=== PATIENT | male | born 1940 | race Caucasian/White ===

== ENCOUNTER 2023-06-15 10:28 | Emergency (ER) | payer OTHER ==
--- OUTSIDE RECORDS SUMMARY | 2023-06-15 10:31 | XMS REPORT | Continuity of Care Document ---
Author Name Unknown Address [address] [facility] [address] [place] [address] [facility] thconnect Address [address] [facility]. [address] [place] [address] Care Team Providers Care Cattle Sprayer Name Role Phone Juan Rowe Attending Clinician UnavailBree Ambrosio Attending Clinician Unavailable Radiology Attending Clinician Unavailable RADIOLOGY Attending Clinician Unavailable Muna David Cardiology Admitting Clinician Unavailable Bree Hubbard Admitting Clinician Unavailable Payers Payer Name Policy Type Policy Number Effective Date Expirati on Date Source Allergies, Adverse Reactions, Alerts Allergy Name Allergy Type Status Severity Reaction(s) Onset Date Inactive Date Treating Clinician Comments Source No Known Allergie s DA Active U 2018-03 00:00: 00 [facility] No Known Allergie s DA Active U 2018-03 00:00: 00 [facility] NO KNOWN ALLERGIE S Drug Class Active [facility] Social History Social Habit Start Date Stop Date Quantity Comments Source Sex Assigned At [facility] Exposure to SARS-CoV-2 (event) Not sure General acute hospital Smoking Status Start Date Stop Date Source Unknown if ever smoked Unive [facility] Medications Ordered Medication Name Filled Medication Name Start Date Stop Date Current Medication? Ordering Clinician Indication Dosage Frequency Signature (SIG) Comments Components Source iohexol (OMNIPAQUE 350 BULK-100 mL) injection 100 mL 2019-03 20:00: 00 01-08 19:40 :00 No 100mL 100 mL, Intravenou s, ONCE, 1 dose, Leidy 01/09/20 at 1400, Routine [facility] Procedures Procedure Date / Time Performed Performing Clinician Source NOTICE OF BILLING PRACTICES FOR MEDICARE PATIENTS 2020-01-09 21:56:00 Doctor Unassigned, [place] [facility] CT THORAX W WO CONTRAST 2020-01-09 19:46:51 Requisitio n, Paper [facility] PATIENT FINANCIAL POLICY 2020-01-09 18:52:52 Doctor Unassigned, [place] [facility] NO SHOW OR MISSED APPOINTMENT POLICY ACKNOWLEDGEMENT 2020-01-09 18:52:34 Doctor Unassigned, [place] [facility] CONSENT/REFUSAL FOR DIAGNOSIS AND TREATMENT 2020-01-09 18:52:19 Doctor Unassigned, [place] [facility] ASSIGNMENT OF BENEFITS 2020-01-09 18:52:06 Docto r Unassigned, [place] [facility] Encounters Start Date/Time End Date/Time Encounter Type Admission Type Attending Clinicians Care Facility Care Department Encounter ID Source 2021-12-27 04:55:00 2021-12-27 04:55:00 Outpatient AMBER Soledad Juan [facility] OUTD [id number] 75 [facility] 2021-02-20 04:38:00 2021-02-21 12:23:00 Inpatient Bree Wolff [facility] TELE [id number] 36 [facility] 2020-01-09 12:52:25 2020-01-09 23:59:00 Hospital Encounter Radiology [facility] [id number] [facility] 2020-01-09 00:00:00 2020-01-09 00:00:00 Outpatient R RADIOLOGY [facility] [id number] [facility] Results Test Description Test Time Test Comments Results Result Co mments Source BASIC METABOLIC [id number] 08:08:00* Test Item Value Reference Range Interpretation Comme nts SODIUM (test code = NA) 138 mEq/L 134-147 N POTASSIUM (test code = K) 3.6 mEq/L 3.4-5.0 N CHLORIDE (test code = CL) 104 mEq/L 100-108 N CARBON DIOXIDE (test code = CO2) 23 mEq/l 21-33 N ANION GAP (test code = GAP) 15 0-20 N GLUCOSE (test code = GLU) 104 mg/dL 70-110 N BLOOD UREA NITROGEN (test code = BUN) 13 mg/dL 7-18 N GLOMERULAR FILTRATION RATE (test code = GFR) 53.3 70-80 L Units of measure = ml/min/1.73 m2 CREATININE (test code = CREAT) 1.3 mg/dL 0.6-1.3 N CALCIUM (test code = CA) 10.0 mg/dL 8.0-10.5 N PROTHROMBIN [id number] 08:00:00* Test Item Value Reference Range Interpretation Comme nts PROTHROMBIN TIME PATIENT (test code = PTP) 14.7 SECONDS 9.3-12.9 H INTERNATIONAL NORMAL RATIO (test code = INR) 1.3 0.8-1.2 H TARGET INR BY INDICATION Indication INR1. Prophylaxis of venous thrombosis 2.0 - 3.0 (orthopedic surgery), Prophylaxis of venous thrombosis (other than high-risk surgery), Treatment of Deep Vein Thrombosis/Pulmonary Embolism, Prevention of systemic embolism - Tissue heart valves, Acute Myocardial Infarction (to prevent systemic embolism), Valvular heart disease, Atrial Fibrillation, Bileaflet mechanical valve in aortic position.2. Mechanical prosthetic valves (high risk), 2.5 - 3.5 Presence of Lupus Anticoagulant or Antiphospholipid Antibodies, Prevention of systemic embolism - Acute Myocardial Infarction (to prevent recurrent infarct). BASIC METABOLIC [id number] 17:09:00* Test Item Value Reference Range Interpretation Comme nts SODIUM (test code = NA) 139 mEq/L 134-147 N POTASSIUM (test code = K) 4.4 mEq/L 3.4-5.0 N CHLORIDE (test code = CL) 102 mEq/L 100-108 N CARBON DIOXIDE (test code = CO2) 26 mEq/l 21-33 N ANION GAP (test code = GAP) 16 0-20 N GLUCOSE (test code = GLU) 117 mg/dL 70-110 H BLOOD UREA NITROGEN (test code = BUN) 13 mg/dL 7-18 N GLOMERULAR FILTRATION RATE (test code = GFR) 53.3 70-80 L Units of measure = ml/min/1.73 m2 CREATININE (test code = CREAT) 1.3 mg/dL 0.6-1.3 N CALCIUM (test code = CA) 9.9 mg/dL 8.0-10.5 N PROTHROMBIN [id number] 17:04:00* Test Item Value Reference Range Interpretation Comme nts PROTHROMBIN TIME PATIENT (test code = PTP) 19.5 SECONDS 9.3-12.9 H INTERNATIONAL NORMAL RATIO (test code = INR) 1.8 0.8-1.2 H TARGET INR BY INDICATION Indication INR1. Prophylaxis of venous thrombosis 2.0 - 3.0 (orthopedic surgery), Prophylaxis of venous thrombosis (other than high-risk surgery), Treatment of Deep Vein Thrombosis/Pulmonary Embolism, Prevention of systemic embolism - Tissue heart valves, Acute Myocardial Infarction (to prevent systemic embolism), Valvular heart disease, Atrial Fibrillation, Bileaflet mechanical valve in aortic position.2. Mechanical prosthetic valves (high risk), 2.5 - 3.5 Presence of Lupus Anticoagulant or Antiphospholipid Antibodies, Prevention of systemic embolism - Acute Myocardial Infarction (to prevent recurrent infarct). CBC W/AUTO [id number] 16:52:00* Test Item Value Reference Range Interpretation Comme nts WHITE BLOOD CELL (test code = WBC) 6.1 x10 3/uL 4.5-11.0 N RED BLOOD CELL (test code = RBC) 4.17 x10 6/uL 4.00-5.60 N HEMOGLOBIN (test code = HGB) 13.1 g/dL 12.5-16.9 N HEMATOCRIT (test code = HCT) 39.5 % 37.5-50.7 N MEAN CELL VOLUME (test code = MCV) 94.7 fL 81.0-99.0 N MEAN CELL HGB (test code = MCH) 31.4 pg 27.0-33.0 N MEAN CELL HGB CONCETRATION (test code = MCHC) 33.2 g/dL 33.0-37.0 N RED CELL DISTRIBUTION WIDTH CV (test code = RDW) 13.8 % 11.5-14.5 N RED CELL DISTRIBUTION WIDTH SD (test code = RDW-SD) 47.8 fL 37.0-54.0 N PLATELET COUNT (test code = PLT) 204 x10 3/uL 150-400 N MEAN PLATELET VOLUME (test c ode = MPV) 9.9 fL 7.0-9.0 H NEUTROPHIL % (test code = NT%) 77.8 % 56.0-77.0 H IMMATURE GRANULOCYTE % (test code = IG%) 0.7 % 0.0-2.0 N LYMPHOCYTE % (test code = LY%) 9.7 % 14.0-32.0 L MONOCYTE % (test code = MO%) 9.2 % 4.8-9.0 H EOSINOPHIL % (test code = EO%) 2.1 % 0.3-3.7 N BASOPHIL % (test code = BA%) 0.5 % 0.0-2.0 N NUCLEATED RBC % (test code = NRBC%) 0.0 % 0-0 N NEUTROPHIL # (test code = NT#) 4.74 x10 3/uL 2.0-7.6 N IMMATURE GRANULOCYTE # (test code = IG#) 0.04 x10 3/uL 0.00-0.03 H LYMPHOCYTE # (test code = LY#) 0.59 x10 3/uL 1.0-3.8 L MONOCYTE # (test code = MO#) 0.56 x10 3/uL 0.1-0.8 N EOSINOPHIL # (test code = EO#) 0.13 x10 3/uL 0.0-0.2 N BASOPHIL # (test code = BA#) 0.03 x10 3/uL 0.0-0.2 N NUCLEATED RBC # (test code = NRBC#) 0.00 x10 3/uL 0.0-0.1 N MANUAL DIFF REQUIRED (test c ode = MDIFF) NO - XR CHEST 2 [id number] 00:00:00 [facility] VA[facility]Z [facility] : 1940 Sex: M FAX: Muna Baca MD [phone] [place]: St: PRE FAX: Juan Galindo MD [phone] ------ Name: VAQZUEZ PADRON [facility] : 1940 Age/S: 81/M [address] [place] [address] Unit #: [id number] Loc: [place] [address] Phys: Juan Rowe MD Acct: [id number] Dis Date: Status: PRE [facility] PHONE #: [phone] Exam Date: 12/23/2021 1646 FAX #: [phone] Reason: PREOP EXAMS: CPT CODE: [id number] XR CHEST 2 V [id number] PROCEDURE INFORMATION: Exam: XR Chest Exam date and time: 12/23/2021 4:27 PM Age: 81 years old Clinical indication: Other: Preop TECHNIQUE: Imaging protocol: Radiologic exam of the chest. Views: 2 views. PA and Lateral COMPARISON: No relevant prior studies available. FINDINGS: Lungs: There is mild scarring in the left upper lobe. Scarring versus atelectasis in the right upper lobe is noted. No acute consolidation or interstitial edema is identified. There is mild scarring in the lungbases. Pleural spaces: No pleural effusion. No pneumothorax. Heart/Mediastinum: The heart size is normal. Bones/joints: Degenerative changes in midthoracic spine are present. IMPRESSION: No active disease identified. at 1738 Reported and signed by: Rashaad Kay M.D. CC: Muna David MD; Juan Rowe MD Technologist: RT Neda(Jenn) Trnsaint joseph london Date/Time/By: 12/23/2021 (2460) : By: [email or web address] Orig Print D/T: S: 12/23/2021 (3324) PAGE 1 Signed ReportBASIC METABOLIC PANEL 2021-02-21 07:18:00* Test Item Value Reference Range Interpretation Comme nts SODIUM (test code = NA) 135 MMOL/L 137-145 L POTASSIUM (test code = K) 4.3 MMOL/L 3.5-5.1 N CHLORIDE (test code = CL) 105 MMOL/L 98-107 N CARBON DIOXIDE (test code = CO2) 25 MMOL/L 22-30 N GLUCOSE (test code = GLU) 103 MG/DL 74-106 N BLOOD UREA NITROGEN (test code = BUN) 14 MG/DL 9-20 N GLOMERULAR FILTRATION RATE (test code = GFR) > 60 Reporting units: ml/min/1.73 m2 (Modified MDRD Formula)Reference Range: > or = 60 ml/min/1.73 m2 CREATININE (test code = CREAT) 0.90 MG/DL 0.66-1.25 N CALCIUM (test code = CA) 9.3 MG/DL 8.4-10.2 N CBC W/AUTO [id number] 07:06:00* Test Item Value Reference Range Interpretation Comme nts WHITE BLOOD CELL (test code = WBC) 7.4 K/MM3 3.8-9.8 N RED BLOOD CELL (test code = RBC) 4.30 M/MM3 3.95-5.67 N HEMOGLOBIN (test code = HGB) 13.9 G/DL 12.4-16.7 N HEMATOCRIT (test code = HCT) 41.8 % 35.9-49.5 N MEAN CELL VOLUME (test code = MCV) 97 fL 81.7-96.1 H MEAN CELL HGB (test code = MCH) 32.3 pg 27.6-33.2 N MEAN CELL HGB CONCETRATION (test code = MCHC) 33.3 % 32.9-35.5 N RED CELL DISTRIBUTION WIDTH (test code = RDW) 13.1 % 12.1-15.2 N PLATELET COUNT (test code = PLT) 150 K/MM3 129-368 N MEAN PLATELET VOLUME (test c ode = MPV) 9.8 fl 7.4-10.4 N NEUTROPHIL % (test code = NT%) 71.6 % 43-75 N IMMATURE GRANULOCYTE % (test code = IG%) 0.4 % 0.0-2.0 N LYMPHOCYTE % (test code = LY%) 13.6 % 14-44 L MONOCYTE % (test code = MO%) 10.6 % 4-13 N EOSINOPHIL % (test code = EO%) 3.3 % 0-6 N BASOPHIL % (test code = BA%) 0.5 % 0-2 N NUCLEATED RBC % (test code = NRBC%) 0.0 % 0-1.0 N NEUTROPHIL # (test code = NT#) 5.26 K/mm3 2.0-7.6 N IMMATURE GRANULOCYTE # (test code = IG#) 0.03 x10 3/uL 0-0.03 N LYMPHOCYTE # (test code = LY#) 1.00 K/mm3 1.0-3.8 N MONOCYTE # (test code = MO#) 0.78 K/mm3 0.1-0.8 N EOSINOPHIL # (test code = EO#) 0.24 K/mm3 0.0-0.2 H BASOPHIL # (test code = BA#) 0.04 K/mm3 0.0-0.2 N NUCLEATED RBC # (test code = NRBC#) 0.00 K/mm3 0.0-0.1 N [id number] 08:22:00* Test Item Value Reference Range Interpretation Comme nts ACT-ISTAT (test code = ACTI) 321 SEC 74-137 H [id number] 05:57:00* Test Item Value Reference Range Interpretation Comme nts MAGNESIUM (test code = MAG) 1.9 MG/DL 1.6-2.3 N BASIC METABOLIC [id number] 05:57:00* Test Item Value Reference Range Interpretation Comme nts SODIUM (test code = NA) 140 MMOL/L 137-145 N POTASSIUM (test code = K) 4.2 MMOL/L 3.5-5.1 N CHLORIDE (test code = CL) 104 MMOL/L 98-107 N CARBON DIOXIDE (test code = CO2) 28 MMOL/L 22-30 N GLUCOSE (test code = GLU) 113 MG/DL 74-106 H BLOOD UREA NITROGEN (test code = BUN) 15 MG/DL 9-20 N GLOMERULAR FILTRATION RATE (test code = GFR) > 60 Reporting units: ml/min/1.73 m2 (Modified MDRD Formula)Reference Range: > or = 60 ml/min/1.73 m2 CREATININE (test code = CREAT) 1.00 MG/DL 0.66-1.25 N CALCIUM (test code = CA) 9.9 MG/DL 8.4-10.2 N LIPID PROFILE (CORONARY RISK)2021-02-20 05:57:00* Test Item Value Reference Range Interpretation Comme [facility] TRIGLYCERIDES (test code = TRIG) 69 MG/DL 150-199 L TRIGLYCERIDES REFERENCE RANGE:Normal: <150 mg/dLBorderline High: 150-199 mg/dLHigh: 200-499 mg/dLVery High: >=500 mg/dL CHOLESTEROL (test code = CHOL) 191 MG/DL <200 HDL CHOLESTEROL (test code = HDL) 65 MG/DL 40-59 H LIPOPROTEIN LDL (test code = LDL) 95 MG/DL 0-99 N OPTIMAL......... <100 mg/dLNEAR OPTIMAL/ABOVE OPTIMAL.........100-12 9 mg/dL BORDERLINE HIGH.........130-159 mg/dL HIGH.........160-189 mg/dL VERY HIGH.........>/= 190 mg/dL PROTHROMBIN [id number] 05:44:00* Test Item Value Reference Range Interpretation Comme [facility] PROTHROMBIN TIME PATIENT (test code = PTP) 12.0 SECONDS 9.5-12.7 N INTERNATIONAL NORMAL RATIO (test code = INR) 1.1 0.86-1.14 N The INR is to be used only for monitoring oral anticoagulanttherap y. INDICATION INR VALUE -------1. Prophylaxis, deep venous thrombosis, including high risk surgery. 2.0 - 3.0 2. Prophylaxis, deep venous thrombosis, hip surgery, treatment for deep venous thrombosis or pulmonary prevention of systemic embolism in patients with valvular heart disease, atrial fibrillation, tissue heart valve, or acute myocardial infarction. 2.0 - 3.0 3. Mechanical prosthesis heart valves, recurrent systemic embolism. 3.0 - 4.5 PTT [id number] 05:44:00* Test Item Value Reference Range Interpretation Comme nts PTT ACTIVATED (test code = APTT) 34.6 SECONDS 25.1-36.5 N CBC W/AUTO [id number] 05:33:00* Test Item Value Reference Range Interpretation Comme nts WHITE BLOOD CELL (test code = WBC) 7.5 K/MM3 3.8-9.8 N RED BLOOD CELL (test code = RBC) 4.56 M/MM3 3.95-5.67 N HEMOGLOBIN (test code = HGB) 14.4 G/DL 12.4-16.7 N HEMATOCRIT (test code = HCT) 44.3 % 35.9-49.5 N MEAN CELL VOLUME (test code = MCV) 97 fL 81.7-96.1 H MEAN CELL HGB (test code = MCH) 31.6 pg 27.6-33.2 N MEAN CELL HGB CONCETRATION (test code = MCHC) 32.5 % 32.9-35.5 L RED CELL DISTRIBUTION WIDTH (test code = RDW) 13.1 % 12.1-15.2 N PLATELET COUNT (test code = PLT) 169 K/MM3 129-368 N MEAN PLATELET VOLUME (test c ode = MPV) 9.5 fl 7.4-10.4 N NEUTROPHIL % (test code = NT%) 66.3 % 43-75 N IMMATURE GRANULOCYTE % (test code = IG%) 0.3 % 0.0-2.0 N LYMPHOCYTE % (test code = LY%) 16.2 % 14-44 N MONOCYTE % (test code = MO%) 12.1 % 4-13 N EOSINOPHIL % (test code = EO%) 4.3 % 0-6 N BASOPHIL % (test code = BA%) 0.8 % 0-2 N NUCLEATED RBC % (test code = NRBC%) 0.0 % 0-1.0 N NEUTROPHIL # (test code = NT#) 4.94 K/mm3 2.0-7.6 N IMMATURE GRANULOCYTE # (test code = IG#) 0.02 x10 3/uL 0-0.03 N LYMPHOCYTE # (test code = LY#) 1.21 K/mm3 1.0-3.8 N MONOCYTE # (test code = MO#) 0.90 K/mm3 0.1-0.8 H EOSINOPHIL # (test code = EO#) 0.32 K/mm3 0.0-0.2 H BASOPHIL # (test code = BA#) 0.06 K/mm3 0.0-0.2 N NUCLEATED RBC # (test code = NRBC#) 0.00 K/mm3 0.0-0.1 N COVID 19 Asymptomatic IH [id number] 05:10:00* Test Item Value Reference Range Interpretation Comme nts COVID 19 Asymptomatic IH AG (test code = COVNONPUIAG) NEGATIVE Negative "Negative result s from patients with symptom onset beyondfive days, should be treated as presumptive, andconfirmation with a molecular assay, if necessary forpatient management may be performed. Negative results do notrule out COVID-19 and should not be used as the sole basisfor treatment or patient management decisions, includinginfection control decisions. Negative results should beconsidered in the context of a patients recent exposures,history, and the presence of clinical signs and symptomsconsistent with COVID-19.This test detects both viable andnon-viable SARS-CoV and SARS CoV-2.Test performance dependson the amount of virus (antigen) in the sample." Comments to Phleb: PLS RUN TEST CRISTOFER. THANKSCT THORAX W WO [id number] 20:04:34HISTORY: Abnormal chest x-ray. TECHNIQUE: 64-Multidetector noncontrast enhanced CT of the chest wasinitially completed. Subsequently contrast enhanced CT studies wasperformed followed by numerous sagittal and coronal reformations. FINDINGS: Comparison is made with previous CT scan dated 12/26/2017.Visualized portions of the thyroid gland showed no focal lesions. Tracheaand central bronchial airways appear normal. Scattered subcentimeter lymph nodes are seen in the yoselin and themediastinum including some calcified lymph nodes in the right perihilar andinfrahilar regions. Calcified and noncalcified pleural plaques are seen on both sides.Calcified granulomas are seen in the right lung.Calcification noted in the aortic arch and in the LAD and right coronaryarteries. Small amount of calcification is seen in the mitral annulus. Degenerative changes noted in the lower cervical, middle and lower thoracicspines. Prominent Schmorl's nodes are seen in some of the middle thoracicvertebral endplates. No aggressive bone lesions. No aortic aneurysm or aortic dissection. No acute pulmonarythromboemb olism. Visualized upper abdominal organs showed no significant abnormalities.Diverticulosis of visualized segments of large bowel noted without anyacute changes of diverticulitis. CONCLUSIONS:1. 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 No suspicious lung lesionsdetected.2. Calcified granulomas in the lungs with cavitation in the right hilarlymph nodes secondary to remote granulomatous infection, unchanged. [facility], Radiant Results Inft User - 01/09/2020 2:05 PM CSTHISTORY: Abnormal chest x-ray.TECHNIQUE: 64-Multidetector noncontrast enhanced CT of the chest wasinitially completed. Subsequently contrast enhanced CT studies wasperformed followed by numerous sagittal and coronal reformations.FINDINGS: Comparison is made with previous CT scan dated 12/26/2017.Visualized portions of the thyroid gland showed no focal lesions. Tracheaand central bronchial airways appear normal.Scattered subcentimeter lymph nodes are seen in the yoselin and themediastinum including some calcified lymph nodes in the right perihilar andinfrahilar regions.Calcified and noncalcified pleural plaques are seen on both sides.Calcified granulomas are seenin the right lung.Calcification noted in the aortic arch and in the LAD and right coronaryarteries.Small amount of calcification is seen in the mitral annulus.Degenerative changes noted in the lowercervical, middle and lower thoracicspines. Prominent Schmorl's nodes are seen in some of the middle thoracicvertebral endplates. No aggressive bone lesions.No aortic aneurysm or aortic dissection. Noacute pulmonarythromboembolism.Visualized upper abdominal organs showed no significant abnormalities.Diverticulosis of visualized segments of large bowel noted without anyacute changes of diverticulitis.CONCLUSIONS:1. 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 No suspicious lung lesionsdetected.2. Calcified granulomas in the lungs with cavitation in the right hilarlymph nodes secondary to remote granulomatous infection, unchanged.[facility] BASIC METABOLIC [id number] 07:36:00* Test Item Value Reference Range Interpretation Comme nts SODIUM (test code = NA) 137 MMOL/L 137-145 N POTASSIUM (test code = K) 4.0 MMOL/L 3.5-5.1 N CHLORIDE (test code = CL) 98 MMOL/L 98-107 N CARBON DIOXIDE (test code = CO2) 28 MMOL/L 22-30 N GLUCOSE (test code = GLU) 137 MG/DL 74-106 H BLOOD UREA NITROGEN (test code = BUN) 18 MG/DL 9-20 N GLOMERULAR FILTRATION RATE (test code = GFR) > 60 Reporting units: ml/min/1.73 m2 (Modified MDRD Formula)Reference Range: > or = 60 ml/min/1.73 m2 CREATININE (test code = CREAT) 1.00 MG/DL 0.66-1.25 N CALCIUM (test code = CA) 10.3 MG/DL 8.4-10.2 H LIPID PROFILE (CORONARY RISK)2019-02-16 07:36:00* Test Item Value Reference Range Interpretation Comme nts TRIGLYCERIDES (test code = TRIG) 60 MG/DL TRIGLYCERIDES REFERENCE RANGE:Normal: <150 mg/dLBorderline High: 150-199 mg/dLHigh: 200-499 mg/dLVery High: >=500 mg/dL CHOLESTEROL (test code = CHOL) 188 MG/DL <200 HDL CHOLESTEROL (test code = HDL) 87 MG/DL 40-59 H LIPOPROTEIN LDL (test code = LDL) 79 MG/DL 0-99 N OPTIMAL......... <100 mg/dLNEAR OPTIMAL/ABOVE OPTIMAL.........100-12 9 mg/dL BORDERLINE HIGH.........130-159 mg/dL HIGH.........160-189 mg/dL VERY HIGH.........>/= 190 mg/dL [id number] 07:36:00* Test Item Value Reference Range Interpretation Comme nts MAGNESIUM (test code = MAG) 1.9 MG/DL 1.6-2.3 N BASIC METABOLIC [id number] 07:26:00* Test Item Value Reference Range Interpretation Comme nts SODIUM (test code = NA) 137 MMOL/L 137-145 N POTASSIUM (test code = K) 4.0 MMOL/L 3.5-5.1 N CHLORIDE (test code = CL) 98 MMOL/L 98-107 N CARBON DIOXIDE (test code = CO2) 28 MMOL/L 22-30 N GLUCOSE (test code = GLU) 137 MG/DL 74-106 H BLOOD UREA NITROGEN (test code = BUN) 18 MG/DL 9-20 N GLOMERULAR FILTRATION RATE (test code = GFR) > 60 Reporting units: ml/min/1.73 m2 (Modified MDRD Formula)Reference Range: > or = 60 ml/min/1.73 m2 CREATININE (test code = CREAT) 1.00 MG/DL 0.66-1.25 N CALCIUM (test code = CA) 10.3 MG/DL 8.4-10.2 H LIPID PROFILE (CORONARY RISK)2019-02-16 07:26:00* Test Item Value Reference Range Interpretation Comme nts TRIGLYCERIDES (test code = TRIG) 60 MG/DL TRIGLYCERIDES REFERENCE RANGE:Normal: <150 mg/dLBorderline High: 150-199 mg/dLHigh: 200-499 mg/dLVery High: >=500 mg/dL CHOLESTEROL (test code = CHOL) 188 MG/DL <200 HDL CHOLESTEROL (test code = HDL) 87 MG/DL 40-59 H LIPOPROTEIN LDL (test code = LDL) MG/DL 0-99 [id number] 07:26:00* Test Item Value Reference Range Interpretation Comme nts MAGNESIUM (test code = MAG) 1.9 MG/DL 1.6-2.3 N BASIC METABOLIC [id number] 07:25:00* Test Item Value Reference Range Interpretation Comme nts SODIUM (test code = NA) 137 MMOL/L 137-145 N POTASSIUM (test code = K) 4.0 MMOL/L 3.5-5.1 N CHLORIDE (test code = CL) 98 MMOL/L 98-107 N CARBON DIOXIDE (test code = CO2) 28 MMOL/L 22-30 N GLUCOSE (test code = GLU) 137 MG/DL 74-106 H BLOOD UREA NITROGEN (test code = BUN) 18 MG/DL 9-20 N GLOMERULAR FILTRATION RATE (test code = GFR) > 60 Reporting units: ml/min/1.73 m2 (Modified MDRD Formula)Reference Range: > or = 60 ml/min/1.73 m2 CREATININE (test code = CREAT) 1.00 MG/DL 0.66-1.25 N CALCIUM (test code = CA) 10.3 MG/DL 8.4-10.2 H LIPID PROFILE (CORONARY RISK)2019-02-16 07:25:00* Test Item Value Reference Range Interpretation Comme nts TRIGLYCERIDES (test code = TRIG) 60 MG/DL TRIGLYCERIDES REFERENCE RANGE:Normal: <150 mg/dLBorderline High: 150-199 mg/dLHigh: 200-499 mg/dLVery High: >=500 mg/dL CHOLESTEROL (test code = CHOL) 188 MG/DL <200 HDL CHOLESTEROL (test code = HDL) MG/DL 40-59 LIPOPROTEIN LDL (test code = LDL) MG/DL 0-99 [id number] 07:25:00* Test Item Value Reference Range Interpretation Comme nts MAGNESIUM (test code = MAG) MG/DL 1.6-2.3 BASIC METABOLIC [id number] 07:24:00* Test Item Value Reference Range Interpretation Comme nts SODIUM (test code = NA) 137 MMOL/L 137-145 N POTASSIUM (test code = K) 4.0 MMOL/L 3.5-5.1 N CHLORIDE (test code = CL) 98 MMOL/L 98-107 N CARBON DIOXIDE (test code = CO2) MMOL/L 22-30 GLUCOSE (test code = GLU) MG/DL 74-106 BLOOD UREA NITROGEN (test co de = BUN) MG/DL 9-20 GLOMERULAR FILTRATION RATE ( test code = GFR) CREATININE (test code = CREAT) MG/DL 0.66-1.25 CALCIUM (test code = CA) MG/DL 8.7-9.7 LIPID PROFILE (CORONARY RISK)2019-02-16 07:24:00* Test Item Value Reference Range Interpretation Comme nts TRIGLYCERIDES (test code = TRIG) MG/DL CHOLESTEROL (test code = CHOL) 188 MG/DL <200 HDL CHOLESTEROL (test code = HDL) MG/DL 40-59 LIPOPROTEIN LDL (test code = LDL) MG/DL 0-99 [id number] 07:24:00* Test Item Value Reference Range Interpretation Comme nts MAGNESIUM (test code = MAG) MG/DL 1.6-2.3 BASIC METABOLIC [id number] 07:22:00* Test Item Value Reference Range Interpretation Comme nts SODIUM (test code = NA) 137 MMOL/L 137-145 N POTASSIUM (test code = K) 4.0 MMOL/L 3.5-5.1 N CHLORIDE (test code = CL) 98 MMOL/L 98-107 N CARBON DIOXIDE (test code = CO2) MMOL/L 22-30 GLUCOSE (test code = GLU) MG/DL 74-106 BLOOD UREA NITROGEN (test co de = BUN) MG/DL 9-20 GLOMERULAR FILTRATION RATE ( test code = GFR) CREATININE (test code = CREAT) MG/DL 0.66-1.25 CALCIUM (test code = CA) MG/DL 8.7-9.7 LIPID PROFILE (CORONARY RISK)2019-02-16 07:22:00* Test Item Value Reference Range Interpretation Comme nts TRIGLYCERIDES (test code = TRIG) MG/DL CHOLESTEROL (test code = CHOL) MG/DL <200 HDL CHOLESTEROL (test code = HDL) MG/DL 40-59 LIPOPROTEIN LDL (test code = LDL) MG/DL 0-99 [id number] 07:22:00* Test Item Value Reference Range Interpretation Comme nts MAGNESIUM (test code = MAG) MG/DL 1.6-2.3 PROTHROMBIN [id number] 07:16:00* Test Item Value Reference Range Interpretation Comme [facility] PROTHROMBIN TIME PATIENT (test code = PTP) 10.3 SECONDS 9.6-11.6 N INTERNATIONAL NORMAL RATIO (test code = INR) 1.0 0.8-1.1 N The INR is to be used only for monitoring oral anticoagulanttherap y. INDICATION INR VALUE -------1. Prophylaxis, deep venous thrombosis, including high risk surgery. 2.0 - 3.0 2. Prophylaxis, deep venous thrombosis, hip surgery, treatment for deep venous thrombosis or pulmonary prevention of systemic embolism in patients with valvular heart disease, atrial fibrillation, tissue heart valve, or acute myocardial infarction. 2.0 - 3.0 3. Mechanical prosthesis heart valves, recurrent systemic embolism. 3.0 - 4.5 PTT [id number] 07:16:00* Test Item Value Reference Range Interpretation Comme [facility] PTT ACTIVATED (test code = APTT) 27.3 SECONDS 22.0-33.0 N CBC W/AUTO [id number] 07:03:00* Test Item Value Reference Range Interpretation Comme nts WHITE BLOOD CELL (test code = WBC) 6.5 K/MM3 3.8-9.8 N RED BLOOD CELL (test code = RBC) 4.28 M/MM3 3.95-5.67 N HEMOGLOBIN (test code = HGB) 14.3 G/DL 12.4-16.7 N HEMATOCRIT (test code = HCT) 41.4 % 35.9-49.5 N MEAN CELL VOLUME (test code = MCV) 97 fL 81.7-96.1 H MEAN CELL HGB (test code = MCH) 33.4 pg 27.6-33.2 H MEAN CELL HGB CONCETRATION (test code = MCHC) 34.5 % 32.9-35.5 N RED CELL DISTRIBUTION WIDTH (test code = RDW) 12.9 % 12.1-15.2 N PLATELET COUNT (test code = PLT) 165 K/MM3 129-368 N MEAN PLATELET VOLUME (test c ode = MPV) 8.8 fl 7.4-10.4 N NEUTROPHIL % (test code = NT%) 74.1 % 43-75 N IMMATURE GRANULOCYTE % (test code = IG%) 0.5 % 0.0-2.0 N LYMPHOCYTE % (test code = LY%) 11.1 % 14-44 L MONOCYTE % (test code = MO%) 10.3 % 4-13 N EOSINOPHIL % (test code = EO%) 3.5 % 0-6 N BASOPHIL % (test code = BA%) 0.5 % 0-2 N NUCLEATED RBC % (test code = NRBC%) 0.0 % 0-1.0 N NEUTROPHIL # (test code = NT#) 4.83 K/mm3 2.0-7.6 N IMMATURE GRANULOCYTE # (test code = IG#) 0.03 x10 3/uL 0-0.03 N LYMPHOCYTE # (test code = LY#) 0.72 K/mm3 1.0-3.8 L MONOCYTE # (test code = MO#) 0.67 K/mm3 0.1-0.8 N EOSINOPHIL # (test code = EO#) 0.23 K/mm3 0.0-0.2 H BASOPHIL # (test code = BA#) 0.03 K/mm3 0.0-0.2 N NUCLEATED RBC # (test code = NRBC#) 0.00 K/mm3 0.0-0.1 N Notes Date/Time Note Provider Source 2021-12-28 16:13:00 [id number] aMHCQO2eL/ZppCQ5ndegcOENGmsFR CSppYsUi6Ris59dl+tNxQsy3jCZ9715-52-57L93:13:16052 5-7749 [place] [address] PATIENT NAME: VAZQUEZ PADRON ADMIT DATE: 12/27/21ACCOUNT NO: [id number] ROOM NO: AGE: 81 REPORT TYPE: eTRANSESOPHAGEAL ECHO REPORT SEX: M ADMITTING PHYSICIAN: ATTENDING PHYSICIAN:Juan Rowe MD *[place] [id number]: Hzt: [phone] Transesophageal Echocardiogram Patient: Anatoly Padron Date: 12/27/2021 BP: [id number] 1940 Age: 81 Height: / Gender: M Weight: /BMI/BSA: / *Ordering Physician: * Juan Rowe MD *Interpreting Physician: * Juan Rowe MD*Proof Technician Helper: * Danyelle Gupta [facility] Indications: PVI. Study data: Consent: The risks, benefits, and alternatives to theprocedure and sedation were explained to the patient and informedconsent was obtained. Procedure: Sedation. General anesthesia wasadministered by anesthesiology staff. Transesophageal echocardiographywas performed. Images were obtained using a Siemens cardiac ultrasoundmachine. Image quality was adequate. Location: Catheterizationlaboratory. Study completion: There were no complications. Findings Left atrium: There is no evidence of a thrombus in the atrial cavityor appendage.Atrial septum: No defect or patent foramen ovale is identified.Aortic valve: The valve is structurally normal. The valve istrileaflet. Cusp separation is normal. There is no evidence of avegetation. There is no evidence of stenosis. There is noregurgitation.PATIENT NAME: VAZQUEZ PADRON Mitral valve: The valve is structurally normal. There is noevidence of a vegetation. Conclusions Summary: 1. Left atrium: There is no evidence of a thrombus in the atrial cavity or appendage.2. Atrial septum: No defect or patent foramen ovale is identified.3. Aortic valve: There is no evidence of a vegetation. There is no evidence of stenosis.4. Mitral valve: There is no evidence of a vegetation. Prepared and electronically signed by Juan Rowe MD12/28/2021 16:13 at 1613 PATIENT NAME: VAZQUEZ PADRON quzrfzq9062-24-58Z23:13:00G.[id number] ilable for patient zqgfSAGFTLLDTIKJTI5883-74-74V80:14:28 [facility] 2021-12-27 12:38:00 [id number]/5 OTgI6GybXRpd690Hay4XgjoWztmqv iJ/2dFfaUkN0MBgrSodHxKs3Jbf7631-89-04X99:38:45409 4-[address] [address] PATIENT NAME: VAZQUEZ PADRON ADMIT DATE: 12/27/21ACCOUNT NO: [id number] ROOM NO: AGE: 81 REPORT TYPE: eELECTROCARDIOGRAM REPORT SEX: M ADMITTING PHYSICIAN: ATTENDING PHYSICIAN:Juan Rowe MD Order:[id number] Reason : ABLATION Test Date/Time Stamp:MonDec 27 2021 12:38:47Blood Pressure : / mmHGVent. Rate : 067 BPM Atrial Rate : 067 BPM P-R Int : 292 ms QRS Dur : 086 ms QT Int : 450 ms P-R-T Axes : 068 005 010 degrees QTc Int : 475 ms Sinus rhythm with 1st degree AV blockCannot rule out Inferior infarct , age undeterminedAnterior infarct (cited on or before 23-DEC-2021)Abnormal ECGPRE_OPConfirmed by REYNA ESTEVEZ MD ([id number]) on 12/27/2021 1:11:49 PM Referred By: Juan Rowe Confirmed by:REYNA ESTEVEZ MD at 1311 PATIENT NAME: VAZQUEZ PADRON .[id number] AVAvailable for patient stllONULUETRJETINH8699-45-97V16:12:13 [facility] 2021-12-27 00:00:00 [id number] 5UK6+NKDlyUJGdFL7DBdmRAgq+E1S t9MNLJwS2QlxeZxxja9LdPbzNC11588-45-62F91:00:[address], [place] [address] PATIENT NAME: VAZQUEZ PADRON ADMIT DATE: 12/27/21ACCOUNT NO: [id number] ROOM NO: AGE: 81 REPORT TYPE: CARDIAC CATHETERIZATION REPORT SEX: M ADMITTING PHYSICIAN: ATTENDING PHYSICIAN:Juan Rowe MD PROCEDURE DATE: 12/27/2021 PROCEDURES PERFORMED:1. Comprehensive electrophysiology study with atrial ablation.2. Left atrial recordings and pacing.3. 2-dimensional intraatrial mapping.4. Intracardiac echocardiography. PREPROCEDURE DIAGNOSES:1. Atrial flutter.2. Coronary artery disease. POSTPROCEDURE DIAGNOSES:1. Typical counterclockwise isthmus dependent atrial flutter.2. Coronary artery disease. TACO MAKER: Juan Rowe MD MONEY MANAGER: None. ANESTHESIA: General endotracheal anesthesia. DESCRIPTION OF PROCEDURE: After informed consent was obtained explaining to thepatient the risks, benefits and alternatives, the patient was brought to thecardiac catheterization lab in the fasting postabsorptive state. He was preppedand draped in sterile fashion. Local anesthesia was supplied over both femoralveins with bupivacaine. Access to the veins was obtained using modifiedSeldinger technique with a micropuncture kit and ultrasound guidance. An8-Rwandan sheath was placed in the right femoral vein. A 9-Rwandan, 8-Rwandan, and6-Rwandan sheaths were placed in the left femoral vein. All sheaths wereaspirated and flushed and connected to heparinized saline infusion. Anintracardiac echocardiography catheter was advanced via the 9-Rwandan sheath intothe right atrium. Intracardiac echocardiography was performed to visualize thecavotricuspid isthmus. The 6-Rwandan sheath was exchanged for a 7-Rwandan sheathand a 6-Rwandan quadripolar catheter was advanced through the 7-Rwandan sheath andplaced in the right ventricle. Adequate pacing and sensing was confirmed. Adecapolar deflectable catheter was advanced via the 8-Rwandan sheath on the leftand placed in the coronary sinus. Left atrial recordings were made and leftatrial pacing was also performed for post-ablation isthmus block analysis. The 8-Rwandan sheath on the right was exchanged for a [place] deflectable sheath.ThermoCool ablation catheter was then prepped and advanced via the [place] sheathinto the right atrium. A 3-dimensional map of the right atrium was created.PATIENT NAME: VAZQUEZ PADRON Entrainment of the flutter was then performed on the cavotricuspid isthmus.This resulted in a post-pacing interval minus tachycardia cycle length of 25milliseconds. INTERVENTION: Multiple RF applications were made across the cavotricuspidisthmus. The [place] deflectable sheath was exchanged for a ramp sheath, whichallowed better positioning of the ablation catheter and further RF applicationswere made. This resulted in termination of the flutter into sinus rhythm.Further RF applications were made where a gap was noted in the line.Bidirectional block was verified with differential pacing. At the end of theprocedure, all catheters were removed. The sheaths were aspirated and flushed.The sheaths were removed and hemostasis achieved with local pressure. Thepatient tolerated the procedure well. No complications. CONCLUSIONS:1. Baseline rhythm, typical counterclockwise isthmus dependent atrial flutter.2. Successful cavotricuspid isthmus ablation. ESTIMATED BLOOD LOSS: 10 mL COMPLICATIONS: None. DT: 12/27/2021 01:24:00 PMReceipt#: [id number]/ TID #: [id number]/DHS Dictated By: Juan Rowe MD Date Dictated: 12/27/2021 00:00:00Date Transcribed: 12/27/2021 14:55:56GSP/ Vebepbg ID: CC:Muna David MDAuthenticated and Edited by Juan Rowe MD On 12/27/21 3:00:44 PM at 0305 PATIENT NAME: VAZQUEZ PADRON pbqj3827-05-23S97:55:00G.[id number] ble for patient hycaRYQOJIUWULHWUN8677-13-51T08:06:02 [facility] 2021-12-23 16:19:00 [id number]/toVsal qCxInbR7zoQM0LUwOLJ+I7RQrBzWT fCcUFUgG3H1kc8wqhAMUpkOdAGO9594-15-93O69:19:15210 5-[address] [address] PATIENT NAME: VAZQUEZ PADRON ADMIT DATE: 12/27/21ACCOUNT NO: [id number] ROOM NO: AGE: 81 REPORT TYPE: eELECTROCARDIOGRAM REPORT SEX: M ADMITTING PHYSICIAN: ATTENDING PHYSICIAN:Juan Rowe MD Order:[id number] Reason : PRE OP Test Date/Time Stamp:MonDec 23 2021 16:19:53Blood Pressure : / mmHGVent. Rate : 090 BPM Atrial Rate : 192 BPM P-R Int : 000 ms QRS Dur : 080 ms QT Int : 396 ms P-R-T Axes : 093 -07 094 degrees QTc Int : 484 ms Atrial flutter with variable AV blockPoor R wave progressionNonspecific ST abnormalityAbnormal ECGWhen compared with ECG of 20-FEB-2021 09:12,Significant changes have occurredConfirmed by AUSTIN JOVEL ([id number]) on 12/28/2021 7:01:29 PM Referred By: Juan Rowe Confirmed by:AUSTIN JOVEL at 1901 PATIENT NAME: VAZQUEZ PADRON .[id number] AVAvailable for patient wgwvUWMMDDIXZIUGOT5748-97-84K35:01:59 [facility] 2021-02-21 06:53:00 [id number] +11i6pytuw6gkg2z9WiZrc8Ze/ DDrW0uyAzXkPEFrvsCz6agBZ9BU1701-13-43A37:53:00 [facility] ([facility])Cardiology Progress NoteREPORT#:[id number] REPORT STATUS: SignedDATE:02/21/21 TIME: 0653 PATIENT: VAZQUEZ PADRON UNIT #: [id number]#: [id number] ROOM/BED: [address]: [address] AGE: 80 SEX: M ATTEND: Bree Hubbard [facility] AUTHOR: Juan Rowe MD * ALL edits or amendments must be made on the electronic/computer document * SubjectiveChief Complaint:CADPatient reports:No: chest pain, palpitations, shortness of breath. Objective GeneralVS/I O:24 hour I O ending at 0700: 02/21 0700 02/20 1900 Intake Total 150.00 Output Total Balance 150.00 Intake, IV 150.00 Number Voids 2 Vital Signs: Date Time Temp Pulse Resp B/P B/P Pulse O2 O2 Flow FiO2 Mean Ox Delivery Rate 02/21 0642 98.2 75 21 143/72 95.8 96 Room air 02/21 0320 99.1 75 18 125/65 85.4 94 02/20 2346 98.8 71 18 134/59 84.0 97 02/20 1857 97.9 72 18 143/75 97.8 95 02/20 1603 98.1 68 21 133/79 97.1 95 Room air 02/20 1313 97.5 68 18 145/71 95.5 97 PATIENT WEIGHT: Weight (lb): Weight (oz): Weight (kg): Medications:Active Meds + DC'd Last 24 HrsAtorvastatin Calcium (LIPITOR) 80 MG BEDTIME PO Amlodipine Besylate (NORVASC) 10 MG DAILY PO Aspirin (ASPIRIN EC) 81 MG DAILY PO Clopidogrel Bisulfate (PLAVIX) 75 MG DAILY PO Levothyroxine Sodium (Synthroid) 25 MCG DAILY PO Losartan Potassium (COZAAR) 100 MG DAILY PO Metoprolol Tartrate (LOPRESSOR) 25 MG DAILY PO Acetaminophen (TYLENOL) 650 MG ASDIR PRN PO Hydrocodone Bitart/Acetaminophen (NORCO 5/325 TABLET (C-II)) 1 TAB Q4H PRN PRN PO Ondansetron HCl (ZOFRAN) 4 MG Q8H PRN PRN IV Sodium Chloride (SODIUM CHLORIDE 0.9%) 1,000 ML .Q10H IV (DC) Midazolam HCl (VERSED (C-IV)) 0 .STK-MED ONE .ROUTE (DC) Clopidogrel Bisulfate (PLAVIX) 0 .STK-MED ONE .ROUTE (DC) Heparin Sodium/Sodium Chloride (HEPARIN 1000 UNITS/NS 500ML) 1,000 ML .STK-MED ONE IV (DC) Iopamidol (ISOVUE-300) 0 .STK-MED ONE .ROUTE (DC) Lidocaine (XYLOCAINE 1%) 0 .STK-MED ONE .ROUTE (DC) Fentanyl Citrate (SUBLIMAZE (C-II)) 0 .STK-MED ONE .ROUTE (DC) Heparin Sodium (HEPARIN SODIUM) 0 .STK-MED ONE .ROUTE (DC) Midazolam HCl (VERSED (C-IV)) 0 .STK-MED ONE .ROUTE (DC) Sodium Chloride (SODIUM CHLORIDE 0.9%) 1,000 ML Q13H IV (DC) Physical ExamGeneral appearance: alert, awake, orientedHead/Eyes: atraumatic, normocephalicENT: moist mucosal membranesNeck: no JVDCardiovascular: CV assessment: regular rate and rhythmRespiratory: clear to auscultation, no distressLower extremity: LE assessment: no edemaMusculoskeletal: full range of motionNeuro/DIRECTOR COUNCIL ON AGING: alert, oriented X 3, CN II-XII intactSkin: dry, intactWound/incision: Location:Right groin Site condition: dressing clean dry ResultsFindings/Data:Laboratory Tests 02/20 0813 Coagulation Activated Coag Time (74 - 137 SEC) 321 H Diagnosis, Assessment Plan Free Text DxA P NotesFree Text DxA P Notes:IMP: CAD s/p PTCA mid LAD PLAN: d/c home f/u with Dr. David at 0959 [facility] #:[phone] OF REPORTPRProgress Crjp2256-12-22H17:53:00Z.MMFE78492112-7841VWVlvum able for patient xgdvRRXSHVDERCDMWB6438-61-89H99:59:58 [facility] 2021-02-20 16:58:00 [id number]/ jdAc2VdLHKAK6kb5IvJ/7cP8aCtLx D3PJ529wBbY8JRRVgUu5KXHICCi1352-43-75A57:58:00 [facility] ([facility])Hospitalist History PhysicalREPORT#:[id number] REPORT STATUS: SignedDATE:02/20/21 TIME: 1657 PATIENT: VAZQUEZ PADRON UNIT #: [id number]#: [id number] [facility] [birth year] AGE: 80 SEX: M ATTEND: Skip Reynaga [facility] AUTHOR: Bree Hubbard MD * ALL edits or amendments must be made on the electronic/computer document * History of Present Illness HPIChief complaint:SOBHPI:This is a 80-year-old patient with pmhx of CAD on medical management, HTN was admitted for elective LHC today. He present to Dr David's office for further evaluation of worsening dyspnea and the nuclear stress test at this timeshows significant LAD ischemia. Ejection fraction was 54% with apical hypokinesis. His echocardiogram showed ejection fraction that was normal. Patient undersent cardiac cath today and a stent was placed on LAD. patien was seen after the procedure today. Currently she denies any complain. He denies any chest pain or shortness of breath. Vital signs stable. History Family HistoryFamily history:Reports: Cancer, Heart disease. Denies: Abdominal aortic aneurysm, Anemia, Asthma, CAD < 40 yrs old, Coagulopathy, Dementia/Alzheimer's dis, Depression/mood disorder, Diabetes, Hypertension, Kidney disease/stones, Seizure disorder, Stroke/TIA, Subarachnoid hemorrhage, Sudden cardiac , Thyroid disorder, , Connective tissue dis, Gallbladder disease, Hyperlipidemia, Neurofibromatosis, Sickle cell disease. Social HistorySmoking status: Smoking status for patients 13 years old or older: Never Smoker Medication/Allergy-Vaccine HxAllergies:Coded Allergies:No Known Allergies (02/15/19) Review of SystemsConstitutional:Denies: chills, fatigue, fever, generalized weakness, lethargy, malaise, recent wt loss, other. Skin:Denies: abrasion, bruising, contusion, diaphoresis, ecchymosis, itching, laceration, rash, swelling, other. Allergy/Immun:Denies: allergic reaction, anaphylaxis, hives, itching, rhinorrhea, sneezing, other. Eyes:Denies: redness, discharge, visual loss/blurred, itching, diplopia, eye pain, photophobia, swelling, other. ENT:Denies: ear drainage, ear ringing, earache, hearing loss, mouth pain, nasal congestion, nose bleeding, sinus problem, sore throat, throat pain, throat swelling, tongue pain, tongue swelling, toothache, voice change, other. Respiratory:Denies: MERCEDES (dyspnea on exertion), hemoptysis, non productive cough, parox nocturnal dyspnea, pleurisy, pleuritic pain, pneumonia, productive cough (sputum), SOB, wheezing, other. Cardiovascular:Denies: chest pain, MERCEDES (dyspnea on exertion), edema, orthopnea, palpitations, parox nocturnal dyspnea, other. GI:Denies: abdominal pain, anorexia, constipation, diarrhea, dysphagia, GERD, hematemesis, hematochezia, hiatal hernia, melena, nausea, rectal pain, vomiting,other. :Denies: dysuria, flank pain, frequency, hematuria, nocturia, penile discharge, penile lesion, testicular pain, testicular swelling, urgency, urinary retention,other. Musculoskeletal:Denies: arthritis, extremity pain, extremity swelling, joint pain, joint swelling, lumbar pain, myalgias, neck pain, thoracic pain, other. Heme:Denies: adenopathy, bleeding, bruising, petechiae, other. Endocrine:Denies: cold intolerance, heat intolerance, polydipsia, polyphagia, polyuria, weight gain, weight loss, other. Neuro:Denies: bladder dysfunction, bowel dysfunction, change in LOC, confusion, dizziness, focal weakness, gait problem, headache, lightheaded, numbness, seizure, slurred speech, spinning sensation, syncope, unable to speak, vision change, weakness, other. Psych:Denies: agitation, anxiety, auditory hallucination, change in mental status, confusion, delusional, depression, homicidal ideation, hostile, insomnia, stress, suicidal ideation, visual hallucination, other. All systems rev neg: except as noted Physical ExamVS/I O:Vital Signs Date Temp Pulse Resp B/P B/P Mean Pulse Ox FiO2 02/20 36.4-36.7 68 18- 133-145/71-79 95.5-97.1 95-97 Last Documented: Result Date Time Pulse Ox 95 02/20 1603 B/P 133/79 02/20 1603 B/P Mean 97.1 02/20 160 O2 Delivery Room air 02/20 160 Temp 36.7 02/20 160 Pulse 68 02/20 160 Resp 21 02/20 160 Patient Weight and BMI Weight (kg): BMI: General appearance: alert, awakeHead/Eyes: atraumatic, clear cornea, EOMI, normal conjunctiva/sclera, normal eyelids/periorb., normocephalic, PERRLENT: normal dentition, normal ear left, normal ear right, normal nose, normal pharynx, normal sinusNeck: full range of motion, non-tender, normal thyroid, supple/no meningismus, no bruit/NL carotids, no JVD, no masses or swellingCardiovascular: normal capillary refill, normal heart soundsRespiratory: clear to auscultation, no distressAbdomen: non-tender, normal bowel sounds, soft, no distention, no guarding, no hernia, no mass/organomegaly, no reboundExtremities: moves all, normal capillary refill, normal range of motion, no edemaMusculoskeletal: normal inspection, painless range of motionNeuro/DIRECTOR COUNCIL ON AGING: alert, oriented X 3Skin: dry, intactPsychiatry: normal affect, normal judgment/insight, normal mood, not homicidal, not suicidal ResultsFindings/Data:Laboratory Tests: 02/20 02/20 02/20 0813 0530 0445 Chemistry Sodium (137 - 145 MMOL/L) 140 Potassium (3.5 - 5.1 MMOL/L) 4.2 Chloride (98 - 107 MMOL/L) 104 Carbon Dioxide (22 - 30 MMOL/L) 28 BUN (9 - 20 MG/DL) 15 Creatinine (0.66 - 1.25 MG/DL) 1.00 Glomerular Filtr Rate > 60 Glucose (74 - 106 MG/DL) 113 H Calcium (8.4 - 10.2 MG/DL) 9.9 Magnesium (1.6 - 2.3 MG/DL) 1.9 Triglycerides (150 - 199 MG/DL) 69 L Cholesterol (<200 MG/DL) 191 LDL Cholesterol Measurd (0 - 99 MG/DL) 95 HDL Cholesterol (40 - 59 MG/DL) 65 H Coagulation INR (0.86 - 1.14) 1.1 APTT (25.1 - 36.5 SECONDS) 34.6 PT Patient/Control Mix (9.5 - 12.7 SECONDS) 12.0 Activated Coag Time (74 - 137 SEC) 321 H Hematology WBC (3.8 - 9.8 K/MM3) 7.5 RBC (3.95 - 5.67 M/MM3) 4.56 Hgb (12.4 - 16.7 G/DL) 14.4 Hct (35.9 - 49.5 %) 44.3 MCV (81.7 - 96.1 fL) 97 H MCH (27.6 - 33.2 pg) 31.6 MCHC (32.9 - 35.5 %) 32.5 L RDW (12.1 - 15.2 %) 13.1 Plt Count (129 - 368 K/MM3) 169 MPV (7.4 - 10.4 fl) 9.5 Neut % (Auto) (43 - 75 %) 66.3 Lymph % (Auto) (14 - 44 %) 16.2 [place] % (Auto) (4 - 13 %) 12.1 Eos % (Auto) (0 - 6 %) 4.3 Baso % (Auto) (0 - 2 %) 0.8 Neut # (Auto) (2.0 - 7.6 K/mm3) 4.94 Lymph # (Auto) (1.0 - 3.8 K/mm3) 1.21 [place] # (Auto) (0.1 - 0.8 K/mm3) 0.90 H Eos # (Auto) (0.0 - 0.2 K/mm3) 0.32 H Baso # (Auto) (0.0 - 0.2 K/mm3) 0.06 Immature Gran % (0.0 - 2.0 %) 0.3 Nucleated RBC % (0 - 1.0 %) 0.0 Nucleated RBCs # (Man) (0.0 - 0.1 K/mm3) 0.00 Serology SARS-CoV-2 Ag (Rapid) (Negative) NEGATIVE Laboratory Tests 02/20/21 0530:[Embedded Image Not Available] Diagnosis, Assessment PlanFree Text A P:72 years old male responsive no history of hypertension, CAD, who presents for elective left heart cath, state post LAD stent. AssessmentHypertensionCAD s/p stentHyperlipidemiaHypothyroidism PlanWe will continue aspirin, Plavix, LipitorWe will continue metoprolol, losartan and NorvascContinue IV hydrationResume home medications including SynthroidFollow-up cardiology recommendationsDVT prophylaxis with SCDPlan for DC tomorrow morning if stable and cleared by entry level financial analyst. Quality: Gen Med Crit Care VTE ProphylaxisVTE prophylaxis initiated: yes Current MedicationsCurrent medication review:I attest that the foregoing medication list in the medical record is true, accurate, and complete to the best of my knowledge. Advanced Care Plan 65 or OlderDiscussed with: patientDiscussion included: code status (full code) at 1724 RPT #:[id number] OF REPORTHPHistory and physical korcdlqucfj7610-27-22X50:58:00Z.[id number] AVAvailable for patient trshIBLWEQRELCMKDD1963-55-31K07:24:22 [facility] 2021-02-20 09:12:00 [id number] JMORcW1IJhP8IhqqXvEfbI1TQ196I q8IiFMVRPmptrTBUzrUSSJJlE5H7054-74-70H39:12:20560 8-[address] [address] PATIENT NAME: VAZQUEZ PADRON ADMIT DATE: 02/20/21ACCOUNT NO: [id number] ROOM NO: [facility] AGE: 80 REPORT TYPE: ELECTROCARDIOGRAM SEX: M ADMITTING PHYSICIAN:Muna David MD ATTENDING PHYSICIAN:Muna David MD Order:[id number] Reason : CAD/PCI Test Date/Time Stamp:MonFeb 20 2021 09:12:58Blood Pressure : / mmHGVent. Rate : 061 BPM Atrial Rate : 061 BPM P-R Int : 224 ms QRS Dur : 092 ms QT Int : 398 ms P-R-T Axes : 063 054 037 degrees QTc Int : 400 ms Sinus rhythm with 1st degree AV blockOtherwise normal ECGWhen compared with ECG of 20-FEB-2021 05:56,No significant change was foundConfirmed by MUNA DAVID ([id number]) on 02/20/2021 10:08:26 AM Referred By: Muna David Confirmed by:MUNA DAVID at 1008 PATIENT NAME: VAZQUEZ PADRON .[id number] AVAvailable for patient diwfBZGRRYTFVIEHAH3560-29-28Y18:08:46 [facility] 2021-02-20 08:31:00 [id number] ea6uEOuH6HsEgb0Jst9/Ge7RiSuPH kU038NX4NkUFEt/IkGTdwqi25sL7719-59-36W88:31:28305 8-[address] [address] PATIENT NAME: VAZQUEZ PADRON ADMIT DATE: 02/20/21ACCOUNT NO: [id number] ROOM NO: [facility] AGE: 80 REPORT TYPE: CARDIAC CATHETERIZATION REPORT SEX: M ADMITTING PHYSICIAN:Muna David MD ATTENDING PHYSICIAN:Muna David MD PROCEDURE DATE: 02/20/2021 COUNTER ROLLER: Muna David MD INDICATION FOR THE PROCEDURE: Dyspnea, coronary artery disease, ischemia in theLAD distribution. TITLE OF THE PROCEDURE:1. Left heart catheterization.2. Drug-eluting stent of the mid LAD.3. Sealing device. ESTIMATED BLOOD LOSS: Minimal. COMPLICATIONS: None. CONTRAST: 70 mL. ANESTHESIA: Conscious sedation with Versed and fentanyl and 1% lidocaine forlocal anesthesia. FINAL DIAGNOSES: Calcified arteries single-vessel coronary artery disease,elevated left ventricular end-diastolic pressure, status post drug-eluting stentof the mid LAD. The recommendation is medical therapy for the rest of hiscoronary artery disease. PROCEDURE IN DETAIL: After informed consent, the patient was brought to thecardiac catheterization lab in a stable fasting nonsedated state. He wasprepped and draped in the usual sterile fashion. After conscious sedation, 1%lidocaine was administered to the right common femoral artery area for localanesthesia. A 6-Rwandan sheath was placed in the right common femoral arteryusing standard techniques and fluoroscopy. After heparinization, left heartcatheterization, showed a 30% plaque in the first obtuse marginal and luminalirregularities in the circumflex. There were calcifications in the left systemand right system. The LAD had a 35% proximal plaque. The mid LAD after thesecond diagonal had a 95% lesion with REKHA-2 flow. The diagonal had a 50%ostial lesion. This lesion has progressed from last time between 60 to 70 andup to like 95%. Right coronary angiogram showed a proximal plaque around 45%,this lesion was 50% to 60% back in 2019. The right coronary artery was dominantand also has calcifications. Left ventricular angiogram showed an ejectionfraction of about 60%, but the anteroapical area is severely hypokinetic. Theleft ventricular end-diastolic pressure was 22 and there was no significant PATIENT NAME: VAZQUEZ PADRON aortic valve gradient. Proceeded for intervention on the LAD. The guide usedwas an XB3.5. The wire used was a Luge. The stent was 3.0 x 18 Resolute Onyxdrug-eluting stent deployed at 16 atmospheres for 25 seconds. This resulted inless than 0% residual and excellent normal flow. The right groin was sealedusing Angio-Seal. There were no complications. The patient tolerated theprocedure well. The patient was transferred back to the holding area forobservation. He will be admitted for observation overnight. There were nocomplications. The patient tolerated the procedure well. Dictated By: Muna David MD WT: CATH:MINAL/CHELA/CHRISTIANDD: 02/20/2021 08:31:45DT: 02/20/2021 09:52:23Conf#: [id number]/DID#: [id number] Authenticated by Muna David MD On 02/20/2021 10:09:20 AM at 1009 PATIENT NAME: VAZQUEZ PADRON Jckc6704-54-52M54:52:00Z.[id number] ble for patient wvteGPSLDJADPUEOEV9907-88-40K48:09:56 [facility] 2021-02-20 05:56:00 [id number] RBUALe78LTd74M+6NiI7oy7cw3oSi 2t2y0EQ929NilwDTPnHMIikQwdF3391-65-67Y14:56:08601 8-[address] [address] PATIENT NAME: VAZQUEZ PADRON ADMIT DATE: 02/20/21ACCOUNT NO: [id number] ROOM NO: AGE: 80 REPORT TYPE: ELECTROCARDIOGRAM SEX: M ADMITTING PHYSICIAN: ATTENDING PHYSICIAN:Muna David MD Order:[id number] Reason : PRE CATHLAB PROCEDURE Test Date/Time Stamp:MonFeb 20 2021 05:56:40Blood Pressure : / mmHGVent. Rate : 060 BPM Atrial Rate : 060 BPM P-R Int : 204 ms QRS Dur : 088 ms QT Int : 390 ms P-R-T Axes : 056 056 054 degrees QTc Int : 390 ms Normal sinus rhythmNormal ECGWhen compared with ECG of 16-FEB-2019 06:53,premature atrial complexes are no longer presentConfirmed by MUNA DAVID ([id number]) on 02/20/2021 6:06:09 AM Referred By: Self Referred Confirmed by:MUNA DAVID at 0606 PATIENT NAME: VAZQUEZ PADRON .[id number] AVAvailable for patient vmcmLMQMTTDBQXZKKA7924-32-86D02:06:34 [facility] 2021-02-20 05:56:00 [id number] 5pEorl3rGwOUPGHhzvpI5whLCo+bK stivPBwGlbxLLN+C952g8uIzPQJ0002-31-65H40:56:50253 0-0036 [place] [id number] PATIENT NAME: VAZQUEZ PADRON ADMIT DATE: 02/20/21ACCOUNT NO: [id number] ROOM NO: Z.408 AGE: 80 REPORT TYPE: ELECTROCARDIOGRAM SEX: M ADMITTING PHYSICIAN:Bree Hubbard MD ATTENDING PHYSICIAN:Bree Hubbard MD Order:[id number] Reason : PRE CATHLAB PROCEDURE Test Date/Time Stamp:MonFeb 20 2021 05:56:40Blood Pressure : / mmHGVent. Rate : 060 BPM Atrial Rate : 060 BPM P-R Int : 204 ms QRS Dur : 088 ms QT Int : 390 ms P-R-T Axes : 056 056 054 degrees QTc Int : 390 ms Normal sinus rhythmNormal ECGWhen compared with ECG of 16-FEB-2019 06:53,premature atrial complexes are no longer presentConfirmed by MUNA DAVID ([id number]) on 02/22/2021 4:19:59 PM Referred By: Self Referred Confirmed by:MUNA DAVID at 1619 PATIENT NAME: VAZQUEZ PADRON .[id number] AVAvailable for patient bjetGZJVPONJRHKBFU1674-27-70J81:20:28 [facility] 2021-02-19 16:39:00 [id number] DyttlStGCuG/gMGdAfvdm88eeLfnU y2Y117WNpZm9zNEHazvgLuXVCad4161-16-55V83:39:41512 7-[address] [address] PATIENT NAME: VAZQUEZ PADRON ADMIT DATE: 02/20/21ACCOUNT NO: [id number] ROOM NO: AGE: 80 REPORT TYPE: HISTORY AND PHYSICAL SEX: M ADMITTING PHYSICIAN: ATTENDING PHYSICIAN:Muna David MD PATIENT NAME: VAZQUEZ PADRON ADMIT DATE:02/20/2021DMISSION DATE: 02/20/2021 COUNTER ROLLER: Muna David MD REASON FOR ADMISSION: Worsening dyspnea, worsening nuclear stress test forcardiac catheterization and possible revascularization. HISTORY OF PRESENT ILLNESS: Vazquez is a 80-year-old patient with known coronaryartery disease. His last cardiac catheterization was on 02/16/2019 that showedthe right coronary to have 50% to 60% proximal to mid lesion. The obtusemarginal was 30% proximal LAD was 30% and the mid LAD was 60% to 70%. At thattime, the patient's nuclear stress test was suggestive of inferior ischemia, sothe patient was managed medically. He comes back for further evaluation ofworsening dyspnea and the nuclear stress test at this time shows significant LADischemia. Ejection fraction was 54% with apical hypokinesis. The patient hasmost likely significant progression of his LAD disease. His echocardiogramshowed ejection fraction that was normal. He has saql-ws-xslgnxvb mitralregurgitation and zeqzbneb-ea-xmipba tricuspid insufficiency, has moderatepulmonary hypertension. His last monitor showed less than 1% PVCs. His lastcarotid Doppler showed less than 50% disease. Given this information and thepatient's symptoms, he is here for cardiac catheterization to assess forpossible revascularization. PAST MEDICAL HISTORY: Remarkable for hypertension, hyperlipidemia, andhypothyroidism. PAST SURGICAL HISTORY: Back surgery and hernia repair. ALLERGIES: NO KNOWN DRUG ALLERGIES. MEDICATIONS: Aspirin, Levothroid, amlodipine, pravastatin, and losartan. SOCIAL HISTORY: There is no history of smoking, alcohol, or street drug use. FAMILY HISTORY: Positive for atherosclerotic cardiovascular disease. REVIEW OF SYSTEMS: Remarkable for the above. The patient has easybruisability. No acute GI or symptoms. No TIAs or strokes. PHYSICAL EXAMINATION:GENERAL: Reveals a pleasant elderly male, in no acute distress. PATIENT NAME: VAZQUEZ PADRON VITAL SIGNS: Blood pressure 160/73, pulse 65 and regular, respiratory rate 18and unlabored, and temperature afebrile.HEENT: Head, atraumatic and normocephalic. Eyes ENT examination within normalfor age.NECK: Supple. No jugular venous distention, bruits, or lymphadenopathy.Normal upstroke.LUNGS: Clear and resonant.HEART: Regular rate and rhythm with III/ systolic ejection murmur at the leftlower sternal border. No gallops.ABDOMEN: Soft. No tenderness. No organomegaly. No masses or bruits.EXTREMITIES: A 2+ distal pulses. No edema, cyanosis, or clubbing.NEUROLOGIC: Alert and oriented x3. Examination appears to be nonfocal. LABORATORY DATA: Pending. Noninvasive cardiovascular workup enclosed. IMPRESSION: This is a 80-year-old patient with known coronary artery disease,who now has worsening symptoms and worsening nuclear stress test withsignificant LAD ischemia and apical wall motion abnormality. The patient ishere for left heart catheterization and possible revascularization. The risksand benefits of the planned procedure were discussed in detail with the patientand he is willing to proceed. Rest as per orders. Dictated By: Muna David MD WT: HP:ZADAM/CHELA/CHRISTIANDD: 02/19/2021 16:39:08DT: 02/19/2021 17:00:22Conf#: [id number]/DID#: [id number] and Edited by Muna David MD On 02/20/21 6:02:57 AM at 0605 PATIENT NAME: VAZQUEZ PADRON and physical jtfsevuofgn1623-66-64F65:00:00Z.[id number] VAvailable for patient iwtzPDGBFZPSCMRAQP2612-99-53A24:05:38 [facility] 2019-02-16 08:54:00 WQedtzlbcmu85642379u LpWSXMBzcNwNoPlLkxjeQKFt2Pc+k lP1GEvxLkXJRMkRFE4E7WqUgMYTWPnqCQv3661-09-05K70:5 4:[id number] [address] PATIENT NAME: VAZQUEZ PADRON ADMIT DATE: 02/16/19ACCOUNT NO: [id number] ROOM NO: AGE: 78 REPORT TYPE: CARDIAC CATHETERIZATION REPORT SEX: M ADMITTING PHYSICIAN: ATTENDING PHYSICIAN:Muna David MD PROCEDURE DATE: 02/16/2019 CARDIOLOGY PROCEDURE COUNTER ROLLER: Muna David MD TITLE OF THE PROCEDURE: Left heart catheterization. INDICATION FOR THE PROCEDURE: Coronary artery disease, ischemia. ESTIMATED BLOOD LOSS: Minimal. COMPLICATIONS: None. CONTRAST: 60 mL. ANESTHESIA: Conscious sedation with Versed and fentanyl. A 1% lidocaine forlocal anesthesia. FINAL DIAGNOSES: Moderate 2-vessel coronary artery disease. Recommendation ismedical therapy. PROCEDURE IN DETAIL: After informed consent, the patient was brought to thecardiac catheterization lab in a stable fasting nonsedated state. He wasprepped and draped in usual sterile fashion. After conscious sedation, 1%lidocaine was administered to the right common femoral artery area for localanesthesia. A 6-Rwandan sheath was placed in the right common femoral arteryusing standard techniques and fluoroscopy. After heparinization, left coronaryangiogram showed 30% plaquing in the obtuse marginal, 30% plaquing in theproximal LAD, after the second diagonal, there was a 60 to 70% lesion that islong, smooth, not hazy, not eccentric and does not appear to be significant. Right coronary angiogram showed 50 to 60% proximal lesion. The right coronaryartery is dominant. Left ventricular angiogram showed a normal ejectionfraction of 75%. Left ventricular end-diastolic pressure of 12 and nosignificant aortic valve gradient or wall motion abnormalities. The right groinwas sealed using Angio-Seal. There were no complications. The patienttolerated the procedure well. The patient will be treated medically. He doesnot have angina. He does have CAD by CAT scan and by the angiogram done todaythat can be managed medically with close observation. I did not feel like apressure wire would be beneficial in this case, the patient will be treatedmedically. PATIENT NAME: VAZQUEZ PADRON Dictated By: Muna David MD WT: CATH:MINAL/CHELA/CHRISTIANDD: 02/16/2019 08:54:48DT: 02/16/2019 09:09:31Conf#: [id number]/DID#: [id number] Authenticated by Muna David MD On 02/16/2019 10:58:35 AM at 1059 PATIENT NAME: VAZQUEZ PADRON Fiuh8035-75-09Z46:09:00Z.[id number] ble for patient zifrOGJXKLBRSPFDEQ9288-58-03P72:59:16 [facility] 2019-02-16 06:53:00 CSwhyfnjqec16126098P GqyrN5+x5WYou70qsOvrAUwjuaWtH 2kF0Fb9+//m8SXBwpEl6Kuhw6xX73AE1Td3280-04-53B64:5 3:[id number] [place] [address] PATIENT NAME: VAZQUEZ PADRON ADMIT DATE: 02/16/19ACCOUNT NO: [id number] ROOM NO: AGE: 78 REPORT TYPE: ELECTROCARDIOGRAM SEX: M ADMITTING PHYSICIAN: ATTENDING PHYSICIAN:Muna David MD Order:[id number] Reason : [facility] Test Date/Time Stamp:Sat Feb 16 2019 06:53:49Blood Pressure : / mmHGVent. Rate : 083 BPM Atrial Rate : 083 BPM P-R Int : 162 ms QRS Dur : 082 ms QT Int : 366 ms P-R-T Axes : 026 044 040 degrees QTc Int : 430 ms Sinus rhythm with premature atrial complexesST abnormality, possible digitalis effectAbnormal ECGNo previous ECGs availableConfirmed by MUNA DAVID ([id number]) on 02/16/2019 7:44:50 AM Referred By: Muna David Confirmed by:MUNA DAVID at 0745 PATIENT NAME: VAZQUEZ PADRON .[id number] AVAvailable for patient kgfoRTSOKYUQAGAOFW3151-97-17A14:45:16 [facility] 2019-02-13 17:45:00 YDomtqfplei25182814Z 1igwOqnra0unzb/X4TRovGVyyRS1M 6NVMfxs9ItiSoKHGCt9J9F4E2cxGc6ruyM5807-26-36U94:4 5:[id number] [place] [address] PATIENT NAME: VAZQUEZ PADRON ADMIT DATE: ACCOUNT NO: [id number] ROOM NO: AGE: 78 REPORT TYPE: HISTORY AND PHYSICAL SEX: M ADMITTING PHYSICIAN: ATTENDING PHYSICIAN:Muna David MD PATIENT NAME: VAZQUEZ PARDON ADMIT DATE:02/16/2019ADMISSION DATE: 02/16/2019 REASON FOR ADMISSION: Dyspnea, coronary artery disease, ischemia for cardiaccatheterization and possible revascularization. HISTORY OF PRESENT ILLNESS: Vazquez is a 78-year-old patient with known coronaryartery disease documented by previously abnormal treadmill stress test and byCAT scan in 2018 showing 3-vessel calcifications. The patient had a negativenuclear stress test back in 2015 and he has been managed medically. He comesrecently with worsening dyspnea on mild exertion. Noninvasive workup wascarried out with a nuclear stress test, which was positive for possible inferiorischemia and was changed from previous evaluation. He had markedly abnormal STdepression. The patient may have balanced ischemia and three-vessel coronaryartery disease. The patient is here for cardiac catheterization to assess forpossible revascularization. He has had a carotid Doppler in 2013 that luexba69% plaquing. He had an echocardiogram in 2018 that showed mild mitralregurgitation. The patient has always had a normal ejection fraction. Thepatient denies any chest pains. No TIAs, syncope or strokes. PAST MEDICAL HISTORY: Remarkable for hypertension, hyperlipidemia, andhypothyroidism. PAST SURGICAL HISTORY: Back surgery and hernia repair. ALLERGIES: NO KNOWN DRUG ALLERGIES. MEDICATIONS: Include aspirin 81 mg daily, levothyroxine 25 mcg daily,amlodipine 10 mg alternating with 5 mg every other day, pravastatin 40 mg daily,and losartan 100 mg daily. SOCIAL HISTORY: The patient is a nonsmoker. He drinks alcohol socially. Thereis no history of street drug use. FAMILY HISTORY: Positive for atherosclerotic cardiovascular disease. REVIEW OF SYSTEMS: Remarkable for the above. He has easy bruisability. Noacute GI or symptoms. No TIAs or strokes. PHYSICAL EXAMINATION:GENERAL: Reveals a pleasant elderly male in no acute distress.VITAL SIGNS: Blood pressure 148/84, pulse 71 and regular, respiratory rate 16, PATIENT NAME: VAZQUEZ PADRON unlabored, temperature afebrile.HEENT: Head, atraumatic and normocephalic. Eyes and ENT examination withinnormal for age.NECK: Supple. No jugular venous distention, bruits, or lymphadenopathy.Normal upstroke.LUNGS: Clear and resonant.HEART: Regular rate and rhythm with II/ systolic ejection murmur at the leftlower sternal border. No gallops.ABDOMEN: Soft. No tenderness, no organomegaly, no masses or bruits.EXTREMITIES: 2+ distal pulses. No edema, cyanosis, or clubbing.NEUROLOGIC: Alert and oriented x3. The examination appears to be nonfocal. LABORATORY DATA: Pending. Noninvasive cardiovascular workup enclosed. IMPRESSION: This is a 78-year-old patient with worsening dyspnea, abnormalnuclear stress test, abnormal CAT scan showing 3-vessel atherosclerosis. Thepatient may have significant three-vessel coronary artery disease with balancedischemia. The patient is here for cardiac catheterization to assess forpossible revascularization. The recommendation is to proceed with theabove-mentioned procedure. The risks and benefits of the planned procedureswere discussed in detail with the patient and he is willing to proceed. Rest asper orders. Dictated By: Muna David MD WT: HP:Z.ADALBERTO/CHELA/CHRISTIANDD: 02/13/2019 17:45:31DT: 02/13/2019 19:54:17Conf#: [id number]/DID#: [id number] and Edited by Muna David MD On 02/14/19 4:11:38 PM at 1614 PATIENT NAME: VAZQUEZ PADRON and physical axxukwnlpva5740-12-08K80:54:00Z.[id number] VAvailable for patient vhowWEGCAGLQDGPOEI4176-38-69A20:14:39 [facility]
[2023-06-15 11:10] LABS: Absolute Lymphocytes (CBC) 0.8 K/uL (0.7-4.9); Absolute Monocytes 0.7 K/uL (0.1-1.3); Absolute Neutrophil 6.3 K/uL (1.8-8.0); Basophils % 0.5 % (0-1.3); Eosinophils % 0.5 % (0-4.4); Hematocrit 41.7 % (39.6-49.0); Lymphocytes % 9.8 % (15.3-44.8); MCH 31.8 pg (27.0-35.0); MCHC 33.5 g/dL (32.0-36.0); MCV 95.1 fL (80-100); MPV 7.5 fL (7.6-11.3); Monocytes % 9.1 % (3.3-12.3); Neutrophils % 80.1 % (41.7-73.7); Nucleated Red Blood Cells % 0.1 % (0-0); Platelets 203 thou/uL (152-406); RBC Red Blood Cell Count 4.39 M/uL (4.33-5.43); Red Cell Distribution Width 13.6 % (12.1-15.2)
--- NOTE | 2023-06-15 11:22 | RAD REPORT ---
EXAM DESCRIPTION: CT - Head Brain Wo Cont - 06/15/2023 11:06 am CLINICAL HISTORY: hypertension, dizzy COMPARISON: No comparisons TECHNIQUE: All CT scans are performed using dose optimization technique as appropriate and may inclu de automated exposure control or mA/KV adjustment according to patient size. FINDINGS: No intracranial hemorrhage, hydrocephalus or extra-axial fluid collection.No areas of brai n edema or evidence of midline shift. Mild chronic small vessel ischemic changes. The paranasal sinuses and mastoids are clear. The calvarium is intact. IMPRESSION: No acute intracranial abnormality.
[2023-06-15 11:25] LABS: Albumin/Globulin Ratio 1.1 (1.1-1.8); Bilirubin Direct 0.2 mg/dL (0-0.2); Bilirubin Indirect, Calculated 0.3 mg/dL (0.2-0.8); Bilirubin Total 0.5 mg/dL (0.2-1.0); Globulin 3.6 g/dL (2.3-3.5); Protein, Total 7.6 g/dL (6.4-8.2); Troponin High Sensitivity 7.7 pg/mL (<58.9)
--- NOTE | 2023-06-15 11:25 | RAD REPORT ---
EXAM DESCRIPTION: RAD - Chest Single View - 06/15/2023 11:10 am CLINICAL HISTORY: hypertension COMPARISON: Chest Pa And Lat (2 Views) dated 02/15/2021 FINDINGS: Lines: None. Lungs: Unchanged nodular densities overlying the right mid and left upper lobe. No acute process iden tified. Pleural: No significant pleural effusions or pneumothorax. Cardiac: The heart size is within normal limits. Mediastinum: Within normal limits. Bones: No acute fractures. Other: None IMPRESSION: No acute cardiopulmonary disease.
--- NOTE | 2023-06-15 12:30 | ER ---
Nurse's Notes [facility] Name: Ramon Padron Age: 83 yrs Sex: Male : 1940 Arrival Date: 06/15/2023 Time: 10:28 Bed 9 Private MD: Maida Lee Diagnosis: Essential (primary) hypertension Presentation: 06/14 10:37 Chief complaint: Patient states: High BP after walking for the past three days. Feels ll1 lightheaded at times. Coronavirus screen: Vaccine status: Patient reports receiving the 2nd dose of the covid vaccine. Client denies travel out of the [place] in the last 14 days. At this time, the client does not indicate any symptoms associated with coronavirus-19. Ebola Screen: Patient denies travel to an Ebola-affected area in the 21 days before illness onset. Initial Sepsis Screen: Does the patient meet any 2 criteria? No. Patient's initial sepsis screen is negative. Does the patient have a suspected source of infection? No. Patient's initial sepsis screen is negative. Risk Assessment: Do you want to hurt yourself or someone else? Patient reports no desire to harm self or others. Onset of symptoms was June 13, 2023. 10:37 Method Of Arrival: Ambulatory ll1 10:37 Acuity: ISAEL 3 ll1 Triage Assessment: 10:42 General: Appears in no apparent distress. Behavior is calm, cooperative, appropriate ll1 for age. Pain: Denies pain. Neuro: Reports. Cardiovascular: Reports lightheadedness, high BP. Historical: - Home Meds: 10:39 ezatimibe [Active]; rosuvastatin 10 mg oral Capsule, Sprinkle [Active]; metoprolol ll1 tartrate 25 mg Oral tablet [Active]; losartan 100 mg oral tablet [Active]; levothyroxine 50 mcg tablet [Active]; amlodipine 2.5 mg tablet [Active]; aspirin 81 mg Oral capsule [Active]; - PMHx: 10:39 Hypertensive disorder; Hypercholesterolemia; ll1 - PSHx: 10:39 1 heart stent; ll1 - Immunization history:: Adult Immunizations up to date. - Infectious Disease History:: Denies. - Social history:: Smoking status: Patient denies any tobacco usage or history of. - Family history:: not pertinent. - Hospitalizations: : No recent hospitalization is reported. Screenin:19 [facility] ED Fall Risk Assessment (Adult) History of falling in the last 3 months, ph including since admission No falls in past 3 months (0 pts) Confusion or Disorientation No (0 pts) Intoxicated or Sedated No (0 pts) Impaired Gait No (0 pts) Mobility Assist Device Used No (0 pt) Altered Elimination No (0 pt) Score/Fall Risk Level 0 - 2 = Low Risk Oriented to surroundings, Maintained a safe environment. Abuse screen: Denies threats or abuse. Denies injuries from another. Nutritional screening: No deficits noted. Tuberculosis screening: No symptoms or risk factors identified. Vital Signs: 10:37 BP 152 / 73; Pulse 66; Resp 16; Temp 97.3; Pulse Ox 99% ; Weight 79.83 kg; Height 5 ft. ll1 11 in. ; Pain 0/10; 12:19 BP 165 / 82; Pulse 68; Resp 18; Pulse Ox 98% on R/A; ph 12:30 BP 152 / 65; Pulse 68; Resp 18; Pulse Ox 98% on R/A; ph 10:37 Body Mass Index 24.55 (79.83 kg, 180.34 cm) ll1 10:37 Pain Scale: Adult ll1 ED Course: 10:30 Patient arrived in ED. mr 10:30 Miada Lee is Private Physician. mr 10:31 Hosea Swift MD is Attending Physician. rn 10:37 Arm band placed on. ll1 10:38 Triage completed. ll1 10:54 Basic Metabolic Panel Sent. bc6 10:54 CBC with Diff Sent. bc6 10:54 LFT's Sent. bc6 10:54 NT PRO-BNP Sent. bc6 10:54 Troponin HS Sent. bc6 10:54 Initial lab(s) drawn, by il, sent to lab. Inserted saline lock: 22 gauge in left wrist, bc6 using aseptic technique. Blood collected. 11:06 CT Head Brain wo Cont In Process Unspecified. EDMS 11:11 XRAY Chest (1 view) In Process Unspecified. EDMS 11:29 EKG done, by ED staff, reviewed by Hosea Swift MD. bc6 12:19 Argenis Hatfield, RN is Primary Nurse. ph 12:30 IV discontinued, intact, bleeding controlled, No redness/swelling at site. Pressure ph dressing applied. 12:32 Patient has correct armband on for positive identification. Bed in low position. Call ph light in reach. Side rails up X 1. Pulse ox on. NIBP on. 12:32 No provider procedures requiring assistance completed. ph Administered Medications: No medications were administered Medication: 12:32 VIS not applicable for this client. ph Outcome: :29 Discharge ordered by . rn 12:50 Patient left the ED. ph 12:50 Discharged to home ambulatory, with significant other, ph 12:50 Condition: good 12:50 Discharge instructions given to patient, significant other, Instructed on discharge instructions, follow up and referral plans. Demonstrated understanding of instructions, follow-up care, Signatures: Dispatcher [employer] EDMS Rita Major, Hosea Wing MD MD rn Hall, Patricia, RN RN ph Lewis, Lynsay, RN RN ll1 Kristina Ortiz 6
--- NOTE | 2023-06-15 12:30 | EDPHYS ---
Physician Documentation [facility] Name: Ramon Padron Age: 83 yrs Sex: Male : 1940 Arrival Date: 06/15/2023 Time: 10:28 Bed 9 Private MD: Maida Lee ED Physician Hosea Swift HPI: 06/14 11:06 This 83 yrs old Male presents to ER via Ambulatory with complaints of High Blood rn Pressure. 11:06 The patient has elevated blood pressure and discovered this at home. Onset: The rn symptoms/episode began/occurred at an unknown time. Modifying factors:. Associated signs and symptoms: Pertinent positives: headache, Pertinent negatives: chest pain, dyspnea, vomiting, weakness. Severity of symptoms: At its worst the blood pressure was moderate, in the emergency department the blood pressure is unchanged. The patient has experienced similar episodes in the past. Patient reports noticed lately that his blood pressure has been up about 30 points. Patient reports walks daily, no chest pain or shortness of breath during exercise, notices shortly after exercise but his blood pressure will shoot up to 150s over 80s. When blood pressure is elevated patient reports flushing and mild headache but over hours blood pressure will come back down. No recent changes in blood pressure medication. No abdominal or back pain. No focal neurological deficit. Historical: - Home Meds: 10:39 ezatimibe [Active]; rosuvastatin 10 mg oral Capsule, Sprinkle [Active]; metoprolol ll1 tartrate 25 mg Oral tablet [Active]; losartan 100 mg oral tablet [Active]; levothyroxine 50 mcg tablet [Active]; amlodipine 2.5 mg tablet [Active]; aspirin 81 mg Oral capsule [Active]; - PMHx: 10:39 Hypertensive disorder; Hypercholesterolemia; ll1 - PSHx: 10:39 1 heart stent; ll1 - Immunization history:: Adult Immunizations up to date. - Infectious Disease History:: Denies. - Social history:: Smoking status: Patient denies any tobacco usage or history of. - Family history:: not pertinent. - Hospitalizations: : No recent hospitalization is reported. ROS: 11:06 Constitutional: Negative for fever, chills, and weight loss, Neck: Negative for injury, rn pain, and swelling, Cardiovascular: Negative for chest pain, palpitations, and edema, Respiratory: Negative for shortness of breath, cough, wheezing, and pleuritic chest pain, Abdomen/GI: Negative for abdominal pain, nausea, vomiting, diarrhea, and constipation, Back: Negative for injury and pain, MS/Extremity: Negative for injury and deformity, Skin: Negative for injury, rash, and discoloration, Neuro: Positive for headache Exam: 11:06 Constitutional: This is a well developed, well nourished patient who is awake, alert, rn and in no acute distress. Head/Face: Normocephalic, atraumatic. Eyes: Pupils equal round and reactive to light, extra-ocular motions intact. Cardiovascular: Regular rate and rhythm. No pulse deficits. Respiratory: No increased work of breathing, no retractions or nasal flaring. Abdomen/GI: Soft, nontender Neuro: Awake and alert, GCS 15, oriented to person, place, time, and situation. Cranial nerves II-XII grossly intact. Motor strength 5/5 in all extremities. Sensory grossly intact. Cerebellar exam normal. Vital Signs: 10:37 BP 152 / 73; Pulse 66; Resp 16; Temp 97.3; Pulse Ox 99% ; Weight 79.83 kg; Height 5 ft. ll1 11 in. ; Pain 0/10; 12:19 BP 165 / 82; Pulse 68; Resp 18; Pulse Ox 98% on R/A; ph 12:30 BP 152 / 65; Pulse 68; Resp 18; Pulse Ox 98% on R/A; ph 10:37 Body Mass Index 24.55 (79.83 kg, 180.34 cm) ll1 10:37 Pain Scale: Adult ll1 MDM: 10:31 Patient medically screened. rn 12:28 Differential diagnosis: hypertensive crisis, Malignant HTN. Data reviewed: vital signs, rn nurses notes, lab test result(s), EKG, radiologic studies, CT scan, plain films, and as a result, I will discharge patient. Care significantly affected by the following chronic conditions: Hypertension. Counseling: I had a detailed discussion with the patient and/or guardian regarding the historical points, exam findings, and any diagnostic results supporting the discharge/admit diagnosis, lab results, radiology results, the need for outpatient follow up, to return to the emergency department if symptoms worsen or persist or if there are any questions or concerns that arise at home. Special discussion: I discussed with the patient/guardian in detail that at this point there is no indication for admission to the hospital. It is understood, however, that if the symptoms persist or worsen the patient needs to return immediately for re-evaluation. ED course: No acute findings and workup here. Specifically CT head is negative, chest x-ray clear, troponin negative, negative ECG. Gave strict instructions to follow-up with critical care educator for further blood pressure management, taking blood pressure diary, and return precautions given. I have personally reviewed all of the results, including but not limited to blood tests and imaging deemed necessary to safely discharge this patient at this time. All results given to and printed out for patient. I personally went over all the results with the patient and answered all questions. Patient will follow-up with PCP and or specialist as discussed. Return precautions given and understood.. 06/14 10:46 Order name: Basic Metabolic Panel; Complete Time: 11: rn 06/14 10:46 Order name: CBC with Diff; Complete Time: : rn 06/14 10:46 Order name: LFT's; Complete Time: : rn 06/14 10:46 Order name: NT PRO-BNP; Complete Time: 11: rn 06/14 10:46 Order name: Troponin HS; Complete Time: : rn 06/14 10:46 Order name: XRAY Chest (1 view); Complete Time: 11: rn 06/14 10:46 Order name: CT Head Brain wo Cont; Complete Time: 11: rn 06/14 10:46 Order name: EKG; Complete Time: 10:47 rn 06/14 10:46 Order name: Cardiac monitoring; Complete Time: 12: rn 06/14 10:46 Order name: EKG - Nurse/Tech; Complete Time: 11:29 rn 06/14 10:46 Order name: IV Saline Lock; Complete Time: 10:54 rn 06/14 10:46 Order name: Labs collected and sent; Complete Time: :54 rn 06/14 10:46 Order name: O2 Per Protocol; Complete Time: 12:19 rn 06/14 10:46 Order name: O2 Sat Monitoring; Complete Time: 12:19 rn Administered Medications: No medications were administered Disposition Summary: 06/15/23 12:29 Discharge Ordered Notes: Location: Home rn Problem: new rn Symptoms: have improved rn Condition: Stable rn Diagnosis - Essential (primary) hypertension rn Followup: rn - With: Private Physician - When: As needed - Reason: Recheck today's complaints, Re-evaluation by your physician Discharge Instructions: - Discharge Summary Sheet rn - Hypertension, Adult rn - How to Take Your Blood Pressure, [id number] rn - Managing Your Hypertension rn Forms: - Medication Reconciliation Form rn - Thank You Letter rn - Antibiotic golf tournament consultant - Prescription Opioid Use rn - Patient Portal Instructions rn - Leadership Thank You Letter rn Signatures: Dispatcher [employer] EDHosea Sauceda MD MD rn Hall, Patricia, RN RN Johnny Servin, RN RN ll1 Corrections: (The following items were deleted from the chart) 10:47 10:47 Head Brain Wo [email or web address] ordered. EDAZ EDAZ
[2023-06-15 14:02] VITALS: BP 165/82; TEMP 97.3; O2SAT 98
--- NOTE | 2023-06-16 13:39 | EKG ---
Test Date: 2023-06-15 Test Time: 11:27:51 Rn Diabetes Educator: PHILLW MEASUREMENT RESULTS: Intervals: Rate: 66 NE: 246 QRSD: 84 QT: 368 QTc: 385 [place]: P: 67 NE: 246 QRS: 46 T: 62 INTERPRETIVE STATEMENTS: Sinus rhythm with 1st degree AV block Low voltage QRS Borderline ECG No previous ECG available for comparison Electronically Signed On 06-16-23 13:37:50 CDT by Isaiah Estevez
== END 2023-06-15 12:50 | disposition home or self-care (01) ==
LOC: ER 10:28
DX: I10 Essential (primary) hypertension (principal); Z95.818 Presence of other cardiac implants and grafts; Z79.82 Long term (current) use of aspirin
CPT/HCPCS: 36415; 70450; 71045; 80048; 80076; 83880; 84484; 85025; 93005; 99284